=== PATIENT | female | born 1945 | race Caucasian/White ===

== ENCOUNTER 2017-03-11 07:06 | Day surgery (SDC) | payer OTHER, MEDICARE ==
--- NOTE | ~2017-03-11 | EGD ---
EGD REPORT [facility] [address] [place] [address] NAME: MOUNIKA KESSLER : [birth year] STATUS : REG [facility]#: [id number] AGE: 71 ADM/REG DATE : 03/11/17 MR#: [id number] REPORT SERV DATE: 03/11/17 DICTATED BY: JOSE MCCANN DATE: 03/11/17 REPORT STATUS : Draft TRANSCRIBED BY: [facility] DATE: 03/11/17 Endoscopy Center Patient Name: Mounika Kessler Date of : 1945 Attending MD: JOSE MCCANN MD Procedure Date No Time: 03/11/2017 Procedure: Colonoscopy Indications: High risk colon cancer surveillance: Personal history of colonic polyps Medicines: as per anesthesia Complications: No immediate complications. Procedure: Pre-Anesthesia Assessment: - ASA Grade Assessment: I - A normal, healthy patient. After I obtained informed consent, the scope was passed under direct vision. Throughout the procedure, the patient's blood pressure, pulse, and oxygen saturations were monitored continuously. The PCF [id number] was introduced through the anus and advanced to the cecum, identified by appendiceal orifice and ileocecal valve. The colonoscopy was somewhat difficult due to significant looping and a tortuous colon. The patient tolerated the procedure. The quality of the bowel preparation was adequate to identify polyps. Findings: The perianal and digital rectal examinations were normal. A few small and large-mouthed diverticula were found in the sigmoid colon, in the descending colon and in the ascending colon. Internal hemorrhoids were found during endoscopy and were mild. Impression: - Diverticulosis in the sigmoid colon, in the descending colon and in the ascending colon. - Internal hemorrhoids. Recommendation: - Repeat colonoscopy in 5 years for surveillance. Procedure Code(s): --- Professional --- 83149, Colonoscopy, flexible, proximal to splenic flexure; diagnostic, with or without collection of specimen(s) by brushing or washing, with or without colon decompression (separate procedure) Diagnosis Code(s): --- Professional --- K64.8, Other hemorrhoids K57.30, Diverticulosis of large intestine without EGD REPORT [facility] [address] [place] [address] NAME: MOUNIKA KESSLER : [birth year] STATUS : REG [facility] PAT#: [id number] AGE: 71 ADM/REG DATE : 03/11/17 MR#: [id number] REPORT SERV DATE: 03/11/17 DICTATED BY: JOSE MCCANN. DATE: 03/11/17 REPORT STATUS : Draft TRANSCRIBED BY: [employer] DATE: 03/11/17 perforation or abscess without bleeding Z86.010, Personal history of colonic polyps CPT copyright 2013 [employer]. All rights reserved. The codes documented in this report are preliminary and upon remote coders review may be revised to meet current compliance requirements. JOSE MCCANN MD 03/11/2017 8:37 AM This report has been signed electronically. Number of Addenda: 0 Note Initiated On: 03/11/2017 7:24 AM Scope Withdrawal Time 0 hours 7 minutes 39 seconds [id number] [place] [id number]
[~2017-03-11 07:06] MED LIST: CALCIUM PO; CRANBERRY1 TAB OR; EFFEXXR75 PO; MULTIPLE VIT PO; PREMPRO1 TA1 PO; PROBIOTIC PO
== END 2017-03-11 23:59 | disposition home or self-care (01) ==
LOC: DMU 07:06
PROVIDERS: Internal Medicine Gastroenterology
PROC: 0DJD8ZZ Inspection of Lower Intestinal Tract, Via Natural or Artificial Opening Endoscopic (ICD-10-PCS; principal; 2017-03-11 08:30)
DX: Z12.11 Encounter for screening for malignant neoplasm of colon (principal); K64.8 Other hemorrhoids; K57.30 Diverticulosis of large intestine without perforation or abscess without bleeding; Z86.010 Personal history of colon polyps; Z79.899 Other long term (current) drug therapy; Z98.51 Tubal ligation status; Z96.653 Presence of artificial knee joint, bilateral